=== PATIENT | male | born 1940 | race Caucasian/White ===

== ENCOUNTER → 2017-05-06 | Outpatient (CLI) | payer MEDICARE ==
[~2017-05-06] MED LIST: AVODART0.5 MG PO; KEFLEX 500MG.500 MG PO
[2017-05-06 09:57] LABS: HEMOGLOBIN 14.8 g/dL (14.1-18.0); LYMPH # 2.3 K/mm3 (0.7-4.5); LYMPH % 30.7 % (10-50)
[2017-05-06 11:10] LABS: BUN 14 mg/dL (7-18)
[2017-05-06 11:29] LABS: GFR (ESTIMATED) 72 ML/MIN (>60)
== END ==
LOC: LAB 09:31
PROVIDERS: Surgery
DX: K40.90 Unilateral inguinal hernia, without obstruction or gangrene, not specified as recurrent (principal); Z01.818 Encounter for other preprocedural examination